=== PATIENT | female | born 1985 | race Caucasian/White ===

== ENCOUNTER 2019-09-01 17:08 | Inpatient (IN) ==
[2019-09-01] MEDS ORDERED: SODIUM CHLORIDE 0.9% 1000ML 1,000 ML IV SCH ×2 (17:30→21:32)
--- NOTE | 2019-09-01 17:58 | CT Scan Report ---
CT head/brain wo con CLINICAL HISTORY: 34 years-old Female presenting with seizure non-verbal. TECHNIQUE: Multidetector CT imaging of the head was performed without the use of intravenous contrast . IV contrast: None. One or more dose lowering techniques were used consistent with the principles of ALARA (as low as reasonably achievable), including automatic exposure control, mA or kV adjustment t o individual patient size, and/or use of iterative reconstruction. COMPARISON: None. CT DOSE (mGy.cm): The estimated cumulative dose is 537.48 mGy.cm. FINDINGS: National Account Manager topogram: Unremarkable. Ventricles and sulci normal in size. No hemorrhage. Brain parenchyma normal in appearance with preser darling staton-white differentiation. No acute territorial infarct. No mass effect or midline shift. No ext ra-axial fluid collection. Paranasal sinuses and mastoid air cells clear. Calvarium intact. IMPRESSION: 1. No acute intracranial abnormality. Electronically signed by: Cabrera Parks M.D. 09/01/2019 5:57 PM
[2019-09-01 18:58] LABS: Basophils # (auto) 0.03 K/uL (0-0.2); Basophils % (auto) 0.3 %; Eosinophils # (auto) 0.07 K/uL (0-0.5); Eosinophils % (auto) 0.7 %; Hematocrit (blood only) 36.6 % (37-47); Hemoglobin 12.8 g/dL (12.0-16.0); Immature Granulocytes # (auto) 0.03 K/uL (0.00-0.02); Immature Granulocytes % (auto) 0.3 %; Lymphocytes % (auto) 41.2 %; Mean Corpuscular Hemoglobin 30.9 pg (25-34); Mean Corpuscular Volume 88.4 fL (80-100); Mean Platelet Volume 9.8 fL (7.4-10.4); Monocytes # (auto) 0.99 K/uL (0.11-0.59); Monocytes % (auto) 9.7 %; Neutrophils # (auto) 4.88 K/uL (1.4-6.5); Neutrophils % (auto) 47.8 %; Platelet Count 169 K/uL (130-400); RDW Coefficient of Variation 13.9 % (11.5-14.5); RDW Standard Deviation 45.3 fL (36.4-46.3); Red Blood Count 4.14 M/uL (4.2-5.4)
[2019-09-01 19:01] LABS: Albumin Level 3.9 gm/dl (3.4-5.0); BUN Creatinine Ratio 25.1 (10-20); Calcium 9.3 mg/dl (8.5-10.1); Creatinine Clr Calc Pharmacy 89.4 ml/min; Est GFR (African American) 112.4; Magnesium 2.3 mg/dl (1.8-2.4); Potassium 3.8 mmol/L (3.5-5.1)
[2019-09-01 19:04] LABS: Albumin Globulin Ratio 1.3 (0.9-2); Bilirubin,Total 0.3 mg/dl (0.2-1); Globulin 2.9 gm/dl (2.5-4.0); Total Protein 6.8 gm/dl (6.4-8.2)
[2019-09-01 19:52] LABS: Appearance Urine Clear (Clear); Bilirubin Urine Negative (Negative); Blood Urine Negative (Negative); Color Urine Yellow; Glucose Urine UA Negative (Negative); Ketones Urine Negative (Negative); Leukocyte Esterase Urine Negative (Negative); Nitrite Urine Negative (Negative); Protein Urine Negative (Negative); Specific Gravity Urine 1.015 (1.000-1.030); Urobilinogen Urine Negative (Negative)
[2019-09-01 20:06] LABS: Bacteria Urine Automated 1+ (Negative); Epithelial Cell Urine Auto >30 /lpf (0-5)
[2019-09-01 20:07] LABS: RBC Urine Automated 0-4 /hpf (0-4)
[2019-09-01 20:34] LABS: Amphetamines+Metham, Urine Neg (Neg); Barbiturates, Urine Neg (Neg); Benzodiazepine, Urine Neg (Neg); Cocaine, Urine Neg (Neg); MDMA (Ecstacy), Urine Neg (Neg); Methadone, Urine Neg (Neg); Opiate, Urine Neg (Neg); Phencyclidine, Urine Neg (Neg)
[2019-09-01] MEDS ORDERED: LORazepam 1.5 MG/3 ML VIAL IV PRN (21:32)
[2019-09-01] MEDS ORDERED: NITROGLYCERIN SL 0.4 MG/TAB TAB SL PRN (21:32)
[2019-09-01] MEDS ORDERED: ONDANSETRON INJ 2 MG/ML 2 ML VIAL IV PRN (21:32)
[2019-09-01] MEDS ORDERED: OXYCODONE/ACETAMINOPHEN 5mg/325mg TAB PO PRN (21:32)
[2019-09-01] MEDS ORDERED: ACETAMINOPHEN 325 MG TAB PO PRN (21:32)
--- NOTE | 2019-09-01 21:58 | History and Physical Report ---
DATE OF ADMISSION: 09/01/2019 CHIEF COMPLAINT: Seizures. HISTORY OF PRESENT ILLNESS: This is a 34-year-old female with past medical history significant for GERD, constipation, history of posttraumatic stress disorder, anxiety, depression, mild intellectual disability, conversion disorder, history of pseudoseizures. The patient says she also has heart murmur. The patient says she has some GI bleeds in the past and she had a colonoscopy recently in February and she says once in while, she still gets some blood in the stools. She is currently at [facility] for suicidal behavior, was transferred here because of seizure episode. The patient had an episode of seizure yesterday and today she had about 18-20 minutes of seizure activity. She was given IM Ativan 4 mg and transferred here. There is question of some confusion postictal, but right now she is alert and awake. No biting of tongue, no incontinence. Hemodynamically stable. The patient had video EEG x2 at [facility], diagnosis was psychogenic nonepileptic spells. Last time, her Keppra was stopped and gabapentin was continued for mood, but she is no longer on gabapentin at this time. In January, she had a colonoscopy, after that she had an episode of seizure activity at that time. Currently resting comfortably, hemodynamically stable. Denies any headache, no blurred visions, no earache, no runny nose, no sore throat. Appetite is okay. No chest pain or shortness of breath. No cough, no fever, no chills. Sleeps okay. Ambulating fine. No nausea, no abdominal pain. She says she still has once in a while blood in the stools, no diarrhea, no burning micturition, Normal bladder movements. No swelling in the legs, no rash. ALLERGIES: No known drug allergies. PAST MEDICAL HISTORY: As mentioned above. PAST SURGICAL HISTORY: Bilateral oophorectomy, reduction of breast, total hysterectomy. MEDICATIONS: The patient is currently on Celebrex 100 mg p.o. b.i.d., Klonopin 1 mg p.o. at bedtime, Depakote 25 mg b.i.d., Colace 100 mg p.o. b.i.d., Lamictal 50 mg p.o. daily, loratadine 10 mg p.o. daily, mirtazapine 50 mg p.o. daily, omeprazole 40 mg p.o. daily, Percocet 1 tablet t.i.d. p.r.n., Protonix 40 mg p.o. daily, Seroquel 50 mg p.o. at bedtime. FAMILY HISTORY: Significant for mother, high cholesterol, TIAs and tremor. Father has alcoholism. Sister has a hole in her heart. Maternal grandmother has colon cancer. Paternal cousin has breast cancer. SOCIAL HISTORY: She says she lives with her boyfriend. Former smoker. She is currently using nicotine patches, last time smoke was in February 2019. She smoked about 7 cigarettes a day for 7 years. Alcohol only on special occasions. No drugs. REVIEW OF SYMPTOMS: As per HPI. Rest of review of systems is negative. PHYSICAL EXAMINATION: GENERAL: The patient is of moderate build, not in acute distress. VITAL SIGNS: Temperature 36.4, pulse 93, respiratory rate 27, blood pressure 107/81, oxygen 98% room air. HEENT: No pallor, no icterus. Pupils equal, round, reactive to light. NECK: No JVD, no neck masses, no carotid bruits. CARDIOVASCULAR: S1, S2 heard, regular rate and rhythm. No murmurs. RESPIRATORY SYSTEM: Normal AP diameter. No accessory muscle use. No wheezing, no crackles. ABDOMEN: Soft, bowel sounds present, nontender. No distention. CENTRAL NERVOUS SYSTEM: Cranial nerves II-XII grossly intact. Nonfocal. EXTREMITIES: No edema, no erythema. LABORATORY DATA: WBC 10.2, hemoglobin 12.8, hematocrit 36.6, platelets 169. Sodium 138, potassium 3.8, chloride 103, bicarbonate 29, BUN 20, creatinine 0.7, serum glucose 83, calcium 9.3, magnesium 2.3, total bilirubin 0.3, AST 17, ALT 29, alkaline phosphatase 53. Urinalysis negative. Urine drug screen negative. IMAGING: CT of the head, no acute intracranial abnormalities seen. EKG: Normal sinus rhythm, rate of 88, no significant change seen. ASSESSMENT AND PLAN: This is a 34-year-old female who presents with seizures. 1. Seizures, history of pseudoseizures, had video EEG 2 times in [place] and it showed psychogenic nonepileptic spells. Currently on Depakote and Lamictal for mood. She was on Keppra, but that was stopped. She had seizure episodes yesterday and today she has about 18 months of seizures, questionable postictal state. Currently, the patient is stable. In the ER, she was given 1 dose of IV Keppra 1 gram. Discussed with neurology. No more other medication, try to avoid any medications for now. We will monitor in tele floor. We will get EEG in the morning. Consult neurology for further recommendations. 2. History of suicidal ideation. We will place observation one on one. Suicide precautions. Consult psychiatry. She is coming from [facility]. 3. History of depression and anxiety, posttraumatic stress disorder. Continue Depakote, Lamictal and Remeron, also Seroquel. 4. Gastroesophageal reflux disease. Continue PPI. 5. Mild intellectual disability. The patient says she lives with a boyfriend, but as per the records, she refused to give the contact phone number. Social Service to help with discharge planning. 6.Heart murmur. Could not appreciate on exam. If any concerns will get echo. 6. Deep venous thrombosis prophylaxis, sequential compression devices for now. 7. Disposition: Closely monitor in the tele floor. Level 1 full code. MTDD
[2019-09-01] MEDS: DOCUSATE SODIUM 100 MG CAP PO SCH (22:39)
[2019-09-01] MEDS: DIVALPROEX DELAY RELEASE 500 MG TAB PO SCH (22:40)
[2019-09-01] MEDS: QUETIAPINE FUMARATE 25 MG TABLET PO SCH (22:40)
[2019-09-01] MEDS: DIVALPROEX DELAY RELEASE 125 MG TABEC PO SCH (22:40)
[2019-09-01] MEDS: clonazePAM 1 MG TAB PO SCH (22:42)
--- NOTE | 2019-09-01 23:39 | Emergency Department Note ---
Entered by Roz Byrnes acting as a scribe for Raúl Nelson DO History of Present Illness General Chief complaint: Seizure Stated complaint: SEIZURE Source: patient and other (care home staff) History of Present Illness Onset (ago): day(s) 1 Location: head (2 seizures ) Associated symptoms: + denies other symptoms (new weakness/numbness in arms and legs, new changes in vision ); no headaches The patient is a 34 year old female with PMhx pertinent for seizures and fake seizures who presents to the Emergency Room for evaluation of a seizure. The patient is a resident at [facility] and was sent her today after having 1 seizure yesterday and 1 today. During evaluation the patient does not verbally answer questions but shakes her head to answer questions. She states she is unsure if she had a seizure yesterday or today and unsure if she bit her tongue. Additionally she does not answer when asked what medicines she takes for seizu res. When asked where she is at she is unsure and when asked if she is home she shakes her head "yes". She is also unsure if she bit her tongue during the seizures. She shakes her head "no" when asked if she has a headache. She also denies new weakness/numbness in her arms or legs as well as new changes in vision. HPI is limited due to patient's physical condition as she was non-verbal. Home Medications Home Medications Medication Instructions Recorded Confirmed Type celecoxib [Celebrex] 100 mg PO BID 09/01/19 09/01/19 History clonazepam [Klonopin] 1 mg PO HS 09/01/19 09/01/19 History divalproex [Depakote] 625 mg PO BID 09/01/19 09/01/19 History docusate sodium [Colace] 100 mg PO BID 09/01/19 09/01/19 History lamotrigine [Lamictal] 50 mg PO DAILY 09/01/19 09/01/19 History loratadine [Claritin] 10 mg PO DAILY 09/01/19 09/01/19 History mirtazapine [Remeron] 15 mg PO DAILY 09/01/19 09/01/19 History omeprazole 40 mg PO DAILY 09/01/19 09/01/19 History oxycodone-acetaminophen [Percocet] 1 tab PO TID PRN 09/01/19 09/01/19 History pantoprazole [Protonix] 40 mg PO DAILY 09/01/19 09/01/19 History quetiapine [Seroquel] 50 mg PO HS 09/01/19 09/01/19 History Allergies Allergy/AdvReac Type Severity Reaction Status Date / Time ketorolac [From Toradol] Allergy Unknown Verified 09/01/19 21:46 tramadol Allergy Unknown Verified 09/01/19 21:46 Past Med/Surg History Social History Preferred Language: Bur[place]ian Communication Ability: Effective Hospice Nurse Required: No Beliefs That Will Affect Care: None Current Living Situation: Other Current Living Situation Comment: [facility] Other Information That Helps Us Care for You: No Feels Safe at Home: Yes Safety Concerns: Feels Safe At This Time Smoking Status: Former smoker Tobacco Type: cigarettes ; Do You Dip or Chew Tobacco: No ; Smoking End Date: January 2019 ; Second Hand Exposure: No ; Tobacco Cessation Education Requested by Patient: No Hx Alcohol Use: Yes Alcohol type: beer, wine and hard liquor Hx Substance Use: No Review of Systems See HPI for pertinent positives & negatives. ROS is limited due to patient's physical condition Physical Exam Vital Signs Vital Signs - 24 hr 09/01/19 17:12 09/01/19 17:15 09/01/19 17:20 Temperature 36.4 C L Temperature Source Oral Pulse Rate 93 H 92 H 93 H Pulse Rate from SpO2 Sensor 92 H 93 H Pulse Rhythm Regular Pulse Strength Normal Respiratory Rate 14 21 14 Respiratory Effort / Characteristics Non-Labored Spontaneous Respiratory Depth Normal Respiratory Pattern Regular Blood Pressure 109/76 109/76 Blood Pressure Mean 103 87 Blood Pressure Position Lying Pulse Oximetry 97 97 97 Oxygen Delivery Method Room Air Room Air Room Air Sepsis Recent Fever Within 48 Hours No Sepsis New/Unexplained Change in Mental Status No Sepsis Action Taken by Nursing No Action Required 09/01/19 17:30 09/01/19 18:00 09/01/19 18:30 Temperature Temperature Source Pulse Rate 101 H 92 H 87 Pulse Rate from SpO2 Sensor 101 H 93 H 88 Pulse Rhythm Pulse Strength Respiratory Rate 16 15 15 Respiratory Effort / Characteristics Respiratory Depth Respiratory Pattern Blood Pressure Blood Pressure Mean Blood Pressure Position Pulse Oximetry 98 98 94 Oxygen Delivery Method Room Air Room Air Room Air Sepsis Recent Fever Within 48 Hours Sepsis New/Unexplained Change in Mental Status Sepsis Action Taken by Nursing 09/01/19 19:00 09/01/19 19:30 09/01/19 19:59 Temperature Temperature Source Pulse Rate 100 H 93 H 93 H Pulse Rate from SpO2 Sensor 94 H Pulse Rhythm Pulse Strength Respiratory Rate 13 18 18 Respiratory Effort / Characteristics Respiratory Depth Respiratory Pattern Blood Pressure 107/81 107/81 Blood Pressure Mean 89 91 Blood Pressure Position Pulse Oximetry 98 98 Oxygen Delivery Method Room Air Room Air Sepsis Recent Fever Within 48 Hours Sepsis New/Unexplained Change in Mental Status Sepsis Action Taken by Nursing 09/01/19 20:00 09/01/19 20:01 Temperature Temperature Source Pulse Rate 101 H 97 H Pulse Rate from SpO2 Sensor Pulse Rhythm Pulse Strength Respiratory Rate 18 16 Respiratory Effort / Characteristics Respiratory Depth Respiratory Pattern Blood Pressure 110/82 Blood Pressure Mean 93 Blood Pressure Position Pulse Oximetry 96 95 Oxygen Delivery Method Room Air Room Air Sepsis Recent Fever Within 48 Hours Sepsis New/Unexplained Change in Mental Status Sepsis Action Taken by Nursing GENERAL: laying in bed, disheveled, non-verbal, following commands EYE EXAM: normal conjunctiva, PERRL and EOM's grossly intact OROPHARYNX: no exudate, no erythema, lips, buccal mucosa, and tongue normal and mucous membranes are moist NECK: supple, no nuchal rigidity, no adenopathy, non-tender LUNGS: Clear to auscultation. Normal chest wall mechanics HEART: tachycardic, S1 normal and S2 normal ABDOMEN: abdomen soft, non-tender, normo-active bowel sounds, no masses, no rebound or guarding. BACK: Back is symmetrical on inspection and there is no deformity, no midline tenderness, no CVA tenderness. SKIN: no rashes and no bruising UPPER EXTREMITIES: upper extremities are grossly normal. LOWER EXTREMITIES: No pitting edema. NEURO EXAM: Non-verbal, following commands, cranial nerves II-XII intact, normal speech, no weakness of arms, no weakness of legs. No drift. Finger to nose intact. Gross sensation intact. Course Course ED COURSE: Vital signs were reviewed and showed tachycardia and hypotension. The patients medical record was reviewed The above diagnostic studies were performed and reviewed. ED treatments and interventions as stated above. 1724: The patient was evaluated in room A09B. A complete history and physical examination was performed. 1834: Upon reevaluation, the patient is awake and talking. 1935: The patient states she is feeling better and wants to eat something. She will be admitted to [facility]. 2199: Upon reevaluation, the patient is resting.I discussed my findings with the patient and she understands and agrees with the treatment plan. Based on the patients age, coexisting illnesses, exam and lab findings the decision to treat as an inpatient was made. The patient remained stable while under my care. The patient will be evaluated for further management by hospitalist. Administered Medications Clonazepam (Klonopin) 1 mg PO HS CLAUDIA Stop: 10/01/19 21:31 Last Admin: 09/01/19 22:42 Dose: 1 mg Documented by: [id number] Divalproex Sodium (Depakote Delay Release) 125 mg PO BID CLAUDIA Stop: 10/01/19 21:59 Last Admin: 09/01/19 22:40 Dose: 125 mg Documented by: [id number] Divalproex Sodium (Depakote Delay Release) 500 mg PO BID CLAUDIA Stop: 10/01/19 21:59 Last Admin: 09/01/19 22:40 Dose: 500 mg Documented by: [id number] Docusate Sodium (Colace) 100 mg PO BID CLAUDIA Stop: 10/01/19 21:31 Last Admin: 09/01/19 22:39 Dose: Not Given Documented by: [id number] Sodium Chloride (Nss 1000ml) 1,000 mls @ 100 mls/hr IV .Q10H CLAUDIA Stop: 10/01/19 21:31 Last Admin: 09/01/19 22:10 Dose: 100 mls/hr Documented by: [id number] Quetiapine Fumarate (Seroquel) 50 mg PO HS CLAUDIA Stop: 10/01/19 21:31 Last Admin: 09/01/19 22:40 Dose: 50 mg Documented by: [id number] Discontinued Medications Sodium Chloride (Nss 1000ml) 1,000 mls @ 999 mls/hr IV .Q1H1M CLAUDIA Stop: 09/01/19 18:30 Last Infusion: 09/01/19 19:01 Dose: 0 mls/hr Documented by: [id number] Admin: 09/01/19 18:00 Dose: 999 mls/hr Documented by: [id number] Levetiracetam 1,000 mg/ (Dextrose) 110 mls @ 440 mls/hr IV NOW STA Stop: 09/01/19 19:49 Last Infusion: 09/01/19 20:45 Dose: 0 mls/hr Documented by: [id number] Admin: 09/01/19 20:30 Dose: 440 mls/hr Documented by: [id number] Impression & Plan Seizure, Altered mental status, Elevated BUN Discharge Plan Visit Data *Final* Discharge Date/Time: 09/01/19 21:06 Chief Complaint: Seizure Stated Complaint: SEIZURE ED Provider: Raúl Nelson Discharge Problem: Seizure, Altered mental status, Elevated BUN Patient Disposition: Admitted As Inpatient Discharge Instructions Interventions: ED Discharge Assessment Last Done: 09/01/19 21:06 Medical Decision Making Differential Diagnosis Differential diagnosis includes but is not limited to etiologies such as infection, hypoglycemia, electrolyte abnormalities, cardiac sources, intracerebral event, trauma, toxicologic, neurologic, as well as others were entertained. Medical Records Attestation: I reviewed the patient's medical records. Home Medications Current Medication List: was personally reviewed by me Laboratory Data Attestation: I reviewed the patient's lab results. Result diagrams: 09/01/19 18:50 09/01/19 18:26 Lab Results 09/01/19 09/01/19 09/01/19 Range/Units 18:26 18:26 18:26 WBC Cancelled RBC Cancelled Hgb Cancelled Hct Cancelled MCV Cancelled MCH Cancelled MCHC Cancelled RDW Std Deviation Cancelled RDW Coeff of Jett Cancelled Plt Count Cancelled MPV Cancelled Immature Gran % (Auto) Cancelled Neut % (Auto) Cancelled Lymph % (Auto) Cancelled Ralls % (Auto) Cancelled Eos % (Auto) Cancelled Baso % (Auto) Cancelled Immature Gran # (Auto) Cancelled Neut # (Auto) Cancelled Lymph # (Auto) Cancelled Ralls # (Auto) Cancelled Eos # (Auto) Cancelled Baso # (Auto) Cancelled Absolute Nucleated RBC Cancelled Nucleated RBC % (auto) Cancelled Neutrophils % (Manual) Cancelled Band Neutrophils % Cancelled Lymphocytes % (Manual) Cancelled Prolymphocyte % Cancelled Reactive Lymphs % (Man) Cancelled Monocytes % (Manual) Cancelled Eosinophils % (Manual) Cancelled Basophils % (Manual) Cancelled Metamyelocytes % (Man) Cancelled Myelocytes % (Man) Cancelled Promyelocytes % (Man) Cancelled Blast Cells % (Manual) Cancelled Plasma Cell % (Manual) Cancelled Other Cells % Cancelled Nucleated RBC % Cancelled Neutrophils # (Manual) Cancelled Band Neutrophils # Cancelled Total Absolute Neuts Cancelled Lymphocytes # (Manual) Cancelled Prolymphocyte # Cancelled Reactive Lymphs # Cancelled Total Abs Lymphocytes Cancelled Monocytes # (Manual) Cancelled Eosinophils # (Manual) Cancelled Basophils # (Manual) Cancelled Metamyelocytes # (Man) Cancelled Myelocytes # (Manual) Cancelled Promyelocytes # (Man) Cancelled Blast Cells # (Man) Cancelled Plasma Cell # (Manual) Cancelled Other Cells # Cancelled Nucleated RBCs # (Man) Cancelled Hypersegmented Neuts Cancelled Hyposegmented Neuts Cancelled Hypogranular Neuts Cancelled Large Granular Lymphs Cancelled # Lrg Granular Lymphs Cancelled Hairy Cells Cancelled Smudge Cells Cancelled Toxic Granulation Cancelled Toxic Vacuolation Cancelled Dohle Bodies Cancelled Jacob Rods Cancelled Platelet Estimate Cancelled Hypogranular Platelets Cancelled Clumped Platelets Cancelled Giant Platelets Cancelled Platelet Satelliting Cancelled RBC Morphology Cancelled Polychromasia Cancelled Hypochromasia Cancelled Poikilocytosis Cancelled Basophilic Stippling Cancelled Anisocytosis Cancelled Microcytosis Cancelled Macrocytosis Cancelled Spherocytes Cancelled Pappenheimer Bodies Cancelled Sickle Cells Cancelled Target Cells Cancelled Tear Drop Cells Cancelled Ovalocytes Cancelled Stomatocytes Cancelled [place] Bodies Cancelled Echinocytes Cancelled Acanthocytes (Spur) Cancelled Rouleaux Cancelled RBC Agglutinates Cancelled Schistocytes Cancelled RBC Morph Comment Cancelled Sezary Cell Cancelled Sodium 138 (136-145) mmol/L Potassium 3.8 (3.5-5.1) mmol/L Chloride 103 (98-107) mmol/L Carbon Dioxide 29 (21-32) mmol/L Anion Gap 6.0 (3-11) BUN 20 H (7-18) mg/dl Creatinine 0.79 (0.6-1.2) mg/dl Est Cr Clr Drug Dosing 89.4 ml/min Est GFR ( Amer) 112.4 Est GFR (Non-Af Amer) 97.0 BUN/Creatinine Ratio 25.1 H (10-20) Glucose 83 (70-99) mg/dl Calcium 9.3 (8.5-10.1) mg/dl Magnesium 2.3 (1.8-2.4) mg/dl Total Bilirubin 0.3 (0.2-1) mg/dl AST 17 (15-37) U/L ALT 19 (12-78) U/L Alkaline Phosphatase 53 (45-117) U/L Total Protein 6.8 (6.4-8.2) gm/dl Albumin 3.9 (3.4-5.0) gm/dl Globulin 2.9 (2.5-4.0) gm/dl Albumin/Globulin Ratio 1.3 (0.9-2) Urine Color Urine Appearance (Clear) Urine pH (4.5-7.5) Ur Specific Girard (1.000-1.030) Urine Protein (Negative) Urine Glucose (UA) (Negative) Urine Ketones (Negative) Urine Blood (Negative) Urine Nitrite (Negative) Urine Bilirubin (Negative) Urine Urobilinogen (Negative) Ur Leukocyte Esterase (Negative) Urine WBC (Auto) (0-5) /hpf Urine RBC (Auto) (0-4) /hpf U Epithel Cells (Auto) (0-5) /lpf Urine Bacteria (Auto) (Negative) Urine Opiates Screen (Neg) Ur Methadone, Qual (Neg) Urine Barbiturates (Neg) Valproic Acid 79 (50-100) mcg/ml Ur Phencyclidine (PCP) (Neg) U Amphetamin/Meth Scrn (Neg) MDMA (Ecstasy) Screen (Neg) U Benzodiazepines Scrn (Neg) Ur Cocaine Metabolite (Neg) U Marijuana (THC) Screen (Neg) 09/01/19 09/01/19 09/01/19 Range/Units 18:50 19:39 19:39 WBC 10.20 RBC 4.14 L Hgb 12.8 Hct 36.6 L MCV 88.4 MCH 30.9 MCHC 35.0 RDW Std Deviation 45.3 RDW Coeff of Jett 13.9 Plt Count 169 MPV 9.8 Immature Gran % (Auto) 0.3 Neut % (Auto) 47.8 Lymph % (Auto) 41.2 Ralls % (Auto) 9.7 Eos % (Auto) 0.7 Baso % (Auto) 0.3 Immature Gran # (Auto) 0.03 H Neut # (Auto) 4.88 Lymph # (Auto) 4.20 H Ralls # (Auto) 0.99 H Eos # (Auto) 0.07 Baso # (Auto) 0.03 Absolute Nucleated RBC Nucleated RBC % (auto) Neutrophils % (Manual) Band Neutrophils % Lymphocytes % (Manual) Prolymphocyte % Reactive Lymphs % (Man) Monocytes % (Manual) Eosinophils % (Manual) Basophils % (Manual) Metamyelocytes % (Man) Myelocytes % (Man) Promyelocytes % (Man) Blast Cells % (Manual) Plasma Cell % (Manual) Other Cells % Nucleated RBC % Neutrophils # (Manual) Band Neutrophils # Total Absolute Neuts Lymphocytes # (Manual) Prolymphocyte # Reactive Lymphs # Total Abs Lymphocytes Monocytes # (Manual) Eosinophils # (Manual) Basophils # (Manual) Metamyelocytes # (Man) Myelocytes # (Manual) Promyelocytes # (Man) Blast Cells # (Man) Plasma Cell # (Manual) Other Cells # Nucleated RBCs # (Man) Hypersegmented Neuts Hyposegmented Neuts Hypogranular Neuts Large Granular Lymphs # Lrg Granular Lymphs Hairy Cells Smudge Cells Toxic Granulation Toxic Vacuolation Dohle Bodies Jacob Rods Platelet Estimate Hypogranular Platelets Clumped Platelets Giant Platelets Platelet Satelliting RBC Morphology Polychromasia Hypochromasia Poikilocytosis Basophilic Stippling Anisocytosis Microcytosis Macrocytosis Spherocytes Pappenheimer Bodies Sickle Cells Target Cells Tear Drop Cells Ovalocytes Stomatocytes Silva[place] Bodies Echinocytes Acanthocytes (Spur) Rouleaux RBC Agglutinates Schistocytes RBC Morph Comment Sezary Cell Sodium (136-145) mmol/L Potassium (3.5-5.1) mmol/L Chloride (98-107) mmol/L Carbon Dioxide (21-32) mmol/L Anion Gap (3-11) BUN (7-18) mg/dl Creatinine (0.6-1.2) mg/dl Est Cr Clr Drug Dosing ml/min Est GFR ( Amer) Est GFR (Non-Af Amer) BUN/Creatinine Ratio (10-20) Glucose (70-99) mg/dl Calcium (8.5-10.1) mg/dl Magnesium (1.8-2.4) mg/dl Total Bilirubin (0.2-1) mg/dl AST (15-37) U/L ALT (12-78) U/L Alkaline Phosphatase (45-117) U/L Total Protein (6.4-8.2) gm/dl Albumin (3.4-5.0) gm/dl Globulin (2.5-4.0) gm/dl Albumin/Globulin Ratio (0.9-2) Urine Color Yellow Urine Appearance Clear (Clear) Urine pH 7.0 (4.5-7.5) Ur Specific Girard 1.015 (1.000-1.030) Urine Protein Negative (Negative) Urine Glucose (UA) Negative (Negative) Urine Ketones Negative (Negative) Urine Blood Negative (Negative) Urine Nitrite Negative (Negative) Urine Bilirubin Negative (Negative) Urine Urobilinogen Negative (Negative) Ur Leukocyte Esterase Negative (Negative) Urine WBC (Auto) 5-10 H (0-5) /hpf Urine RBC (Auto) 0-4 (0-4) /hpf U Epithel Cells (Auto) >30 H (0-5) /lpf Urine Bacteria (Auto) 1+ H (Negative) Urine Opiates Screen Neg (Neg) Ur Methadone, Qual Neg (Neg) Urine Barbiturates Neg (Neg) Valproic Acid (50-100) mcg/ml Ur Phencyclidine (PCP) Neg (Neg) U Amphetamin/Meth Scrn Neg (Neg) MDMA (Ecstasy) Screen Neg (Neg) U Benzodiazepines Scrn Neg (Neg) Ur Cocaine Metabolite Neg (Neg) U Marijuana (THC) Screen Neg (Neg) Imaging Data Radiologist's Impression: Radiology results as stated below per my review and the radiologist's interpretation: CT head/brain wo con CLINICAL HISTORY: 34 years-old Female presenting with seizure non-verbal. TECHNIQUE: Multidetector CT imaging of the head was performed without the use of intravenous contrast. IV contrast: None. One or more dose lowering techniques were used consistent with the principles of ALARA (as low as reasonably achievable), including automatic exposure control, mA or kV adjustment to individual patient size, and/or use of iterative reconstruction. COMPARISON: None. CT DOSE (mGy.cm): The estimated cumulative dose is 537.48 mGy.cm. FINDINGS: Environmental Aid topogram: Unremarkable. Ventricles and sulci normal in size. No hemorrhage. Brain parenchyma normal in appearance with preserved staton-white differentiation. No acute territorial infarct. No mass effect or midline shift. No extra-axial fluid collection. Paranasal sinuses and mastoid air cells clear. Calvarium intact. IMPRESSION: 1. No acute intracranial abnormality. Electronically signed by: Cabrera Parks M.D. 09/01/2019 5:57 PM ECG Data Attestation: I personally reviewed and interpreted this ECG as follows: Indication: + other (seizure) Rate (beats per minute): 88 Rhythm: + sinus rhythm ECG Intervals/blocks: + Normal QT ECG [place]: + Normal ECG Findings: no PVCs Blood Pressure Blood Pressure Findings: Low blood pressure Blood Pressure Disposition: Referred to patients primary care provider [facility] Narrative Patient is a 34-year-old female who presents the ER for possible seizure. Patient was brought in by EMS from the [facility] as the patient had a 20-minute seizure. She is a past medical history of pseudoseizures and seizures per her record. She had a seizure yesterday/last night and again the one prior to arrival. She was given 4 IM of Ativan prior to arrival. Upon arrival she was nonverbal and able to shake her head yes and no. She denied all complaints initially. When she eventually woke up she did not remember what happened and again declined any headache, change in vision, chest pains, shortness of breath, nausea vomiting or diarrhea. IV was established blood work was obtained here and showed no significant leukocytosis or anemia. BMP along with LFTs bilirubin was unremarkable. UA was contaminated with multiple epithelial cells. Tox was negative. Depakote level was 70. CT head was negative. Patient was given IV fluids. She was given IV Keppra as well. She was updated bedside. She was admitted to the hospital for further work-up as she has had 2 seizures and under 24 hours 1 of which lasted for 20 minutes. She was also placed on a one-to-one as she was admitted to the medicine initially for suicidal ideations. Discharge Problem: Altered mental status Qualifiers: Altered mental status type: unspecified Qualified Code(s): R41.82 - Altered mental status, unspecified The scribe's documentation has been prepared under my direction and personally reviewed by me in its entirety. I confirm that the note above accurately reflects all work, treatment, procedures, and medical decision making performed by me.
[2019-09-02 05:44] LABS: Basophils # (auto) 0.02 K/uL (0-0.2); Basophils % (auto) 0.3 %; Eosinophils # (auto) 0.16 K/uL (0-0.5); Eosinophils % (auto) 2.1 %; Hematocrit (blood only) 34.1 % (37-47); Hemoglobin 11.7 g/dL (12.0-16.0); Immature Granulocytes # (auto) 0.02 K/uL (0.00-0.02); Immature Granulocytes % (auto) 0.3 %; Lymphocytes # (auto) 3.59 K/uL (1.2-3.4); Mean Corpuscular Hemoglobin 31.4 pg (25-34); Mean Corpuscular Hgb Conc 34.3 g/dL (32-36); Mean Corpuscular Volume 91.4 fL (80-100); Mean Platelet Volume 9.7 fL (7.4-10.4); Monocytes # (auto) 1.01 K/uL (0.11-0.59); Monocytes % (auto) 12.9 %; Neutrophils % (auto) 38.4 %; Platelet Count 181 K/uL (130-400); RDW Standard Deviation 46.4 fL (36.4-46.3); Red Blood Count 3.73 M/uL (4.2-5.4)
[2019-09-02 06:15] LABS: BUN Creatinine Ratio 24.2 (10-20); Calcium 8.4 mg/dl (8.5-10.1); Creatinine Clr Calc Pharmacy 94.2 ml/min; Est GFR (African American) 119.7; Est GFR (Non-African American) 103.3; Magnesium 2.1 mg/dl (1.8-2.4); Potassium 3.8 mmol/L (3.5-5.1)
[2019-09-02] MEDS ORDERED: PNEUMOCOCCAL POLYSACCHARIDES 25 MCG/0.5 ML VIAL/SYR IM ONE (07:30)
[2019-09-02] MEDS ORDERED: PNEUMOCOCCAL ADMINISTRATION CHARGE ONE (07:30)
[2019-09-02] MEDS ORDERED: MIRTAZAPINE TAB 15 MG TAB PO SCH ×2 (09:00→21:00)
[2019-09-02] MEDS ORDERED: NON-FORMULARY MEDICATION (Omeprazole 40 MG) PO SCH (09:00)
[2019-09-02] MEDS: lamoTRIgine 25 MG TAB PO SCH (09:33)
[2019-09-02] MEDS: PANTOprazole 40 MG TAB PO SCH (09:33)
[2019-09-02] MEDS: DIVALPROEX DELAY RELEASE 125 MG TABEC PO SCH ×2 (09:33→21:39)
[2019-09-02] MEDS: DIVALPROEX DELAY RELEASE 500 MG TAB PO SCH ×2 (09:34→21:39)
[2019-09-02] MEDS: LORATADINE 10 MG TAB PO SCH (09:34)
[2019-09-02] MEDS: DOCUSATE SODIUM 100 MG CAP PO SCH ×2 (09:35→21:39)
[2019-09-02] MEDS: NICOTINE 7 MG/24 HR TDSY TD SCH (09:36)
[2019-09-02] MEDS ORDERED: ACETAMINOPHEN 325 MG TAB PO PRN (10:18)
--- NOTE | 2019-09-02 10:20 | Hospitalist Progress Note ---
Date of Service September 02, 2019 Assessment & Plan (1) Seizure: Seizure versus Pseudoseizure -currently at [facility] for suicidal behavior, was transferred here because of concern for a seizure episode -as per admitting hospitalist the episode of about 18-20 minutes of seizure activity when at the [facility], was given IM Ativan 4 mg and transferred to hospital on 09/01/19 -In the ER, she was given 1 dose of IV Keppra 1 gram. -patient's history of seizure workup is difficult to discern from pseudoseizures in the past; had video EEG 2 times in [place] and showed psychogenic nonepileptic spells. -admitting hospitalist discussed with neurology consult who advised monitoring conservatively rather than increase anti-epileptics for now -monitoring patient on telemetry -EEG -neurology recommendations appreciated History of suicidal ideations History of depression and anxiety, posttraumatic stress disorder -transferred from [facility] -Continue Depakote, Lamictal and Remeron, also Seroquel. -observation one on one -Suicide precautions -inpatient psychiatry consult was requested by admitting physician Mild intellectual disability? -case management consult no cardiac murmur audible on my exam there does not appear to be a role to do additional cardiac imaging testing at this time Gastroesophageal reflux disease -Continue PPI Deep venous thrombosis prophylaxis, sequential compression devices for now Subjective Patient seen and examined at bedside. Patient has 1 to 1. Doctor accompanied by nurse. Patient eating food. No acute distress. Patient on room air. heart rate is regular rate and rhythm. Patient denies chest pain or abdominal pain. no nausea of headache or dizziness reported. Review of Systems Review of Systems: All systems reviewed & are unremarkable except as noted in HPI & below Physical Exam Eyes: PERRL, conjunctivae normal, anicteric sclerae EOM intact bilaterally ENMT: external ear and nose normal, oropharynx normal Neck: normal visual inspection Respiratory: normal respiratory effort Cardiovascular: Rate/Rhythm: regular rate and regular rhythm Gastrointestinal (Abdomen): normal bowel sounds, soft, nontender, no hepatosplenomegaly Musculoskeletal: Head/Neck/Chest: normocephalic and head atraumatic Neurologic: PERRL, EOMI, accommodation nl, no face palsy, no dysarthria CN's II-XI intact bilaterally Psychiatric: Orientation: alert and oriented x 3 Results & Data Vital Signs (Past 12 Hours) Vital Signs Temp Pulse Resp BP BP Pulse Ox 09/02/19 07:55 36.9 C 78 14 86/69 L 98 09/02/19 07:04 36.7 C 88 18 100/50 L 93 09/02/19 05:48 36.5 C 78 20 117/69 98 09/02/19 00:01 90 16 95/65 L 95
[2019-09-02] MEDS ORDERED: SODIUM CHLORIDE 0.9% 250 ML IV ONE (10:30)
--- NOTE | 2019-09-02 11:32 | Psychiatric Consultation ---
Date of Consultation September 02, 2019 Impression / Recommendations Impression 34-year-old female admitted medically on 09/01/2019 after presenting to the ED status post observation of seizure activity. Patient was transferred from the [facility] after she reportedly experienced to seizures at their facility. Patient was admitted to the [facility] after reported "overdose", having admitted to taking #2 tablets of oxycodone in order to "take the edge off." Pt was admitted to this facility from the [facility], where she had receiving treatment voluntarily to address her reports of SI and diagnoses of anxiety, depression, and PTSD. Pt was placed on 1:1 and suicide precautions on medical admission, and these should be maintained during her stay to ensure appropriate observation to reduce potential risk of self-harm. Psychiatric consultation was requested to evaluate the patient for potential suicide risk. Patient is able to contract for safety within the hospital setting; however, should be maintained on suicide protocol while in our facility. As patient is denying any significant symptoms related to depression, anxiety, or significant stressors with defer any further medication adjustments to her psychiatric providers at the [facility]. Of note, patient states that her dose of Depakote was reduced to 500mg BID - this is not able to be confirmed with the updated MAR sent by the [facility] - but should be addressed up return to their facility in order to ensure appropriate understanding of recommended dose. Also will adjust dosing of mirtazapine to reflect the [facility] records. Recommend patient return to the [facility] after medical clearance in order to continue psychiatric treatment and participate in aftercare arrangements. Dr. Sylwia Hardy was directly involved in review and discussion of the patient's case and participated in medical decision making regarding treatment recommendations. Risk Factors Assessment Male: No : Yes Health Problems: Yes Mental Health Diagnoses: Yes Substance Use Disorders: No Family History of Suicide: No Hopelessness: No Protective Factors Assessment : No Stable Relationships: No Supportive Family: No Psych History Identifying Data 34-year-old female admitted medically on 09/01/19 after presenting to the ED with observed seizure activity. Pt is presently a patient at the [facility], where she was admitted s/p "overdose" of #2 tablets of oxycodone. She was transferred to the ED and admitted medically for monitoring and treatment of seizure disorder. Psychiatric consultation was requested to evaluate patient for suicidal ideation. Information is limited, as patient is not a strong historian - information is only available from hospital documentation. Chief Complaint "I took two oxycodone." History of Present Illness Divina Inman is a 34-year-old female admitted medically on 09/01/19 after presenting to the ED with observed seizure activity. Patient is currently engaged in psychiatric treatment at the [facility] after a reported suicide attempt by overdose. Patient has a past medical history of GERD, mild intellectual disability, conversion disorder, history of pseudoseizures/seizure disorder, anxiety, depression, and PTSD. Psychiatric consultation is requested to evaluate the patient due to concerns for suicidal ideation. Patient states that she was admitted to the [facility] on "Sunday" (08/29/19) after she "took 2 oxycodone." When asked why patient had engaged in this behavior, she states "my mom, dad, and stepdad do not get along." Patient states that she took the medication in an attempt to "take the edge off." She denies to this provider suicidal intent at the time of taking the medication, stating she did not believe that it would seriously harm her. Patient states that her boyfriend had been downstairs at the time of her overdose, and after finding out about the patient's behavior had called the frit burner. Patient was admitted voluntarily for inpatient psychiatric treatment, and after displaying seizure activity on 2 separate accounts, was transferred to the ED for further workup and treatment. This time, patient states that her mood is "good." She believes that her condition has been improving since her initial admission to the [facility]. Patient denies any significant concerns related to psychiatric history, and feels that her medications have been beneficial. Patient initially states that there were no changes made to her medications upon admission to the [facility]; however, she later states that she was instructed to take 500 mg of Depakote twice a day. Patient states that she is seen at [facility] on an outpatient basis, having regular visits with both a therapist and a psychiatric prescriber. Patient denies any significant stressors at this time that are not currently being addressed in her treatment at the [facility]. Pt denies SI, HI, SIB, A/V hallucinations, paranoia, azael/hypomania, other symptoms more suggestive of a bipolar presentation, OCD, eating disorder, and other specific psychiatric symptoms. Past Psychiatric History Current Psychiatric Diagnosis: Per hospital documentation: depression, anxiety, PTSD, mild ID Outpatient Services: Reportedly has providers for both therapy and medication management at [facility] Previous Psych Admissions: Was admitted to our facility from the [facility] - admission ~08/28/19 History of Previous Suicide Attempt: Yes (patient's perceived lethality is unknown) Describe Attempts in the Past: Took #4 tylenol in the context of pain s/p wisdom tooth extract. Past Medication Trials: 1. Keppra 2. Klonopin 3. Depakote 4. Lamictal 5. Remeron 6. Seroquel Allergies Allergy/AdvReac Type Severity Reaction Status Date / Time ketorolac [From Toradol] Allergy Unknown Verified 09/01/19 21:46 tramadol Allergy Unknown Verified 09/01/19 21:46 Home Medications Home Medications Medication Instructions Recorded Confirmed Type celecoxib [Celebrex] 100 mg PO BID 09/01/19 09/01/19 History clonazepam [Klonopin] 1 mg PO HS 09/01/19 09/01/19 History divalproex [Depakote] 625 mg PO BID 09/01/19 09/01/19 History docusate sodium [Colace] 100 mg PO BID 09/01/19 09/01/19 History lamotrigine [Lamictal] 50 mg PO DAILY 09/01/19 09/01/19 History loratadine [Claritin] 10 mg PO DAILY 09/01/19 09/01/19 History mirtazapine [Remeron] 15 mg PO DAILY 09/01/19 09/01/19 History omeprazole 40 mg PO DAILY 09/01/19 09/01/19 History oxycodone-acetaminophen [Percocet] 1 tab PO TID PRN 09/01/19 09/01/19 History pantoprazole [Protonix] 40 mg PO DAILY 09/01/19 09/01/19 History quetiapine [Seroquel] 50 mg PO HS 09/01/19 09/01/19 History Family History No known family history of psychiatric conditions. Pt reports biological father struggles with alcohol abuse. Substance Abuse History Pt admits to history of tobacco use, having quit smoking in 02/2019 - continues to utilize nicotine patch at home. Pt reports rare, social consumption of alcohol "only on New Years." Reports consuming 3-4 alcoholic beverages on nights she partakes. Personal History Marital Status: Single Number Of Children: None Psychological Trauma History Comment: History of PTSD, specific trauma is u nclear Patient History Social History Preferred Language: Thai Communication Ability: Effective Locker Room Attendant Required: No Beliefs That Will Affect Care: None Current Living Situation: Other Current Living Situation Comment: [place] Other Information That Helps Us Care for You: No Feels Safe at Home: Yes Safety Concerns: Feels Safe At This Time Smoking Status: Former smoker Tobacco Type: cigarettes ; Do You Dip or Chew Tobacco: No ; Smoking End Date: January 2019 ; Second Hand Exposure: No ; Tobacco Cessation Education Requested by Patient: No Hx Alcohol Use: Yes Alcohol type: beer, wine and hard liquor Hx Substance Use: No Physical Exam Psychiatric: Orientation: alert and oriented x 3 Apperance: appropriately dressed and + disheveled; + did not appear stated age (appearing significantly younger than stated age) female of healthy appearing weight, laying in bed in no acute distress. Pt appears significantly younger than stated age. She is appropriately dressed for setting, wearing paper scrubs. Hair is short, and disheveled. She has multiple ear piercings. Level of hygiene is seemingly adequate, pt not overtly malodorous. Level of hydration appears adequate Eye Contact: + poor eye contact (not making direct eye contact; spending most of interview with eyes closed) Motor Behavior: no abnormal motor movements (observed while laying in bed) Speech: + abnormal rate/rhythm/volume of speech (soft tone, nonspontaneous, brief responses to questions) Affect: + flat affect (appearing fatigued) Mood: no depressed mood ("I'm good, just good") and no anxious mood Thought Process: goal directed thought process, + concrete thought process and thought association intact Thought Content: reality based without delusions; no hopelessness and no worthlessness Suicidal Thoughts: denies suicidal thoughts and denies suicidal intent Homicidal Thoughts: denies homicidal thoughts Hallucinations: no auditory hallucinations and no visual hallucinations Cognition: attention grossly intact and language grossly intact Estimated Intelligence: + below average estimated intelligence Insight: + limited insight Judgement: + fair judgement Vital Signs (Past 24 Hours): Last Vital Signs Temp 36.5 C 09/02/19 10:46 Pulse 94 H 09/02/19 10:46 Resp 18 09/02/19 10:46 BP 99/65 L 09/02/19 10:46 Pulse Ox 94 09/02/19 10:46 Review of Systems Constitutional: reports fatigue, often having alteration of sleep/wake cycle HEENT: reports "juarez ringing" in right ear Cardiovascular: denied Respiratory: denied Gastrointestinal: denied Neurological: denied Psychiatric: denies symptoms other than stated above Total of at least 10 systems reviewed, pertinent positives as above and in HPI. Results & Data Medications Administered Clonazepam (Klonopin) 1 mg PO HS CLAUDIA Stop: 10/01/19 21:31 Last Admin: 09/01/19 22:42 Dose: 1 mg Documented by: [id number] Divalproex Sodium (Depakote Delay Release) 125 mg PO BID CLAUDIA Stop: 10/01/19 21:59 Last Admin: 09/02/19 09:33 Dose: 125 mg Documented by: [id number] Admin: 09/01/19 22:40 Dose: 125 mg Documented by: [id number] Divalproex Sodium (Depakote Delay Release) 500 mg PO BID CLAUDIA Stop: 10/01/19 21:59 Last Admin: 09/02/19 09:34 Dose: 500 mg Documented by: [id number] Admin: 09/01/19 22:40 Dose: 500 mg Documented by: [id number] Docusate Sodium (Colace) 100 mg PO BID CLAUDIA Stop: 10/01/19 21:31 Last Admin: 09/02/19 09:35 Dose: 100 mg Documented by: [id number] Admin: 09/01/19 22:39 Dose: Not Given Documented by: [id number] Lamotrigine (Lamictal) 50 mg PO DAILY CLAUDIA Stop: 10/02/19 08:59 Last Admin: 09/02/19 09:33 Dose: 50 mg Documented by: [id number] Loratadine (Claritin) 10 mg PO DAILY CLAUDIA Stop: 10/02/19 08:59 Last Admin: 09/02/19 09:34 Dose: 10 mg Documented by: [id number] Mirtazapine (Remeron) 15 mg PO DAILY CLAUDIA Stop: 10/02/19 08:59 Last Admin: 09/02/19 09:33 Dose: 15 mg Documented by: [id number] Miscellaneous (Remove Nicoderm Patch) 1 ea N/A DAILY@0859 [facility] Stop: 10/02/19 08:58 Last Admin: 09/02/19 09:36 Dose: 1 ea Documented by: [id number] Nicotine (Nicoderm Cq) 7 mg TD QAM CLAUDIA Stop: 10/02/19 08:59 Last Admin: 09/02/19 09:36 Dose: 7 mg Documented by: [id number] Pantoprazole Sodium (Protonix) 40 mg PO DAILY CLAUDIA Stop: 10/02/19 08:59 Last Admin: 09/02/19 09:33 Dose: 40 mg Documented by: [id number] Quetiapine Fumarate (Seroquel) 50 mg PO HS CLAUDIA Stop: 10/01/19 21:31 Last Admin: 09/01/19 22:40 Dose: 50 mg Documented by: [id number] Coding Level of Care Code 70873 [facility] Intl Hosp Care Lvl 2
--- NOTE | 2019-09-02 14:04 | Electroencephalogram ---
EEG Procedure Note Date of Service September 02, 2019 Start / End Times Start Time: 816 End Time: [address] Samson History History of pseudoseizures now with protracted seizure-like activity of uncertain cause Home Medication List Home Medications Medication Instructions Recorded Confirmed Type celecoxib [Celebrex] 100 mg PO BID 09/01/19 09/01/19 History clonazepam [Klonopin] 1 mg PO HS 09/01/19 09/01/19 History divalproex [Depakote] 625 mg PO BID 09/01/19 09/01/19 History docusate sodium [Colace] 100 mg PO BID 09/01/19 09/01/19 History lamotrigine [Lamictal] 50 mg PO DAILY 09/01/19 09/01/19 History loratadine [Claritin] 10 mg PO DAILY 09/01/19 09/01/19 History omeprazole 40 mg PO DAILY 09/01/19 09/01/19 History oxycodone-acetaminophen [Percocet] 1 tab PO TID PRN 09/01/19 09/01/19 History pantoprazole [Protonix] 40 mg PO DAILY 09/01/19 09/01/19 History quetiapine [Seroquel] 50 mg PO HS 09/01/19 09/01/19 History mirtazapine [Remeron] 7.5 mg PO HS 09/02/19 09/02/19 History Inpatient Medication List Clonazepam (Klonopin) 1 mg PO HS [facility] Stop: 10/01/19 21:31 Last Admin: 09/01/19 22:42 Dose: 1 mg Documented by: [id number] Divalproex Sodium (Depakote Delay Release) 125 mg PO BID [facility] Stop: 10/01/19 21:59 Last Admin: 09/02/19 09:33 Dose: 125 mg Documented by: [id number] Admin: 09/01/19 22:40 Dose: 125 mg Documented by: [id number] Divalproex Sodium (Depakote Delay Release) 500 mg PO BID [facility] Stop: 10/01/19 21:59 Last Admin: 09/02/19 09:34 Dose: 500 mg Documented by: [id number] Admin: 09/01/19 22:40 Dose: 500 mg Documented by: [id number] Docusate Sodium (Colace) 100 mg PO BID [facility] Stop: 10/01/19 21:31 Last Admin: 09/02/19 09:35 Dose: 100 mg Documented by: [id number] Admin: 09/01/19 22:39 Dose: Not Given Documented by: [id number] Lamotrigine (Lamictal) 50 mg PO DAILY [facility] Stop: 10/02/19 08:59 Last Admin: 09/02/19 09:33 Dose: 50 mg Documented by: [id number] Loratadine (Claritin) 10 mg PO DAILY [facility] Stop: 10/02/19 08:59 Last Admin: 09/02/19 09:34 Dose: 10 mg Documented by: [id number] Miscellaneous (Remove Nicoderm Patch) 1 ea N/A DAILY@0859 [facility] Stop: 10/02/19 08:58 Last Admin: 09/02/19 09:36 Dose: 1 ea Documented by: [id number] Nicotine (Nicoderm Cq) 7 mg TD QAM [facility] Stop: 10/02/19 08:59 Last Admin: 09/02/19 09:36 Dose: 7 mg Documented by: [id number] Pantoprazole Sodium (Protonix) 40 mg PO DAILY [facility] Stop: 10/02/19 08:59 Last Admin: 09/02/19 09:33 Dose: 40 mg Documented by: [id number] Quetiapine Fumarate (Seroquel) 50 mg PO HS [facility] Stop: 10/01/19 21:31 Last Admin: 09/01/19 22:40 Dose: 50 mg Documented by: [id number] Discontinued Medications Sodium Chloride (Nss 1000ml) 1,000 mls @ 999 mls/hr IV .Q1H1M [facility]UD[facility] Stop: 09/01/19 18:30 Last Infusion: 09/01/19 19:01 Dose: 0 mls/hr Documented by: [id number] Admin: 09/01/19 18:00 Dose: 999 mls/hr Documented by: [id number] Levetiracetam 1,000 mg/ (Dextrose) 110 mls @ 440 mls/hr IV NOW STA Stop: 09/01/19 19:49 Last Infusion: 09/01/19 20:45 Dose: 0 mls/hr Documented by: [id number] Admin: 09/01/19 20:30 Dose: 440 mls/hr Documented by: [id number] Sodium Chloride (Nss 1000ml) 1,000 mls @ 100 mls/hr IV .Q10H CLAUDIA Stop: 10/01/19 21:31 Last Infusion: 09/02/19 08:21 Dose: 0 mls/hr Documented by: [id number] Admin: 09/01/19 22:10 Dose: 100 mls/hr Documented by: [id number] Sodium Chloride (Nss) 250 mls @ 999 mls/hr IV .Q16M ONE Stop: 09/02/19 10:45 Last Infusion: 09/02/19 11:05 Dose: 0 mls/hr Documented by: [id number] Admin: 09/02/19 10:43 Dose: 999 mls/hr Documented by: [id number] Mirtazapine (Remeron) 15 mg PO DAILY [facility] Stop: 10/02/19 08:59 Last Admin: 09/02/19 09:33 Dose: 15 mg Documented by: [id number] Description This is a 21 electrode EEG with a single channel dedicated to limited EKG. The electrodes were placed in accordance with the International 10-20 system. This EEG was done as a bedside recording and is of excellent technical quality without any significant movement or muscle artifact. Photic stimulation was performed. Drowsiness and light sleep are not obtained. During wakefulness there is evidence for a low amplitude background rhythm in the alpha range which is of up to 10 to 11 Hz and maximum frequency and maximum posterior head regions and bilaterally symmetrical. Polymorphic mid frequency low to moderate voltage theta activity is seen centrally and symmetrically. Beta activity is prominent throughout the recording and is seen both frontally and centrally. Photic stimulation provokes a modest driving response without a photo myogenic a photoparoxysmal component. No time is or evidence for potentially epileptogenic activity Interpretation This is a normal EEG during wakefulness Clinical Correlation This is a normal EEG without evidence for focal generalized encephalopathy and without evidence for epileptogenic activity Bautista Davila MD
--- NOTE | 2019-09-02 15:30 | Neurology Consultation ---
Date of Consultation September 02, 2019 Assessment & Plan (1) Anxiety attack: 1. pseudo seizure- this has been worked up several times at [facility] 2. would not continue keppra as she does not need treatment for this 3. psychiatry - for any medications adjustments 4. EEG- no seizure focus 5. once medically and psychiatrically stable ok from neurology perspective to discharge back to [facility] if needed. will sign off for now will be available as needed. Supervising Physician Co-Signing Physician Notes I have seen and discussed above patient with Dr Bautista Davila, neurology I have evaluated this young woman, reviewed her chart, her imaging studies, her labs and her EEG along with a history of well-documented nonepileptic seizures and apparently his recent suicide gesture requiring admission to the [facility] for assessment She is not on any anticonvulsants for epilepsy control but rather for behavior and this includes Depakote and low-dose Lamictal and apparently she is also seen by Dr Delacruz and a psychiatrist in [place] The event that occurred at the [facility] my opinion is yet another non-epileptic seizure as she really was not postictal and had no bodily harm, had normal white count and a normal EEG and was rapidly back to her baseline status without any postictal state I would not continue Keppra at this point and I discussed this with her admitting physician last night and I do not believe this is has been continued beyond the initial "loading dose" At this point neurology has no further suggestions other than that she be returned to the [facility] if indeed they will accept her in transfer, complete her inpatient stay, and then return to the care of her psychiatrist and neurologist in the [place] area which is her home basis. We are recommending no change in her current "anticonvulsant" regimen which is really on board for behavior modification not for seizure control Bautista Davila MD History of Present Illness Attending Physician: Abebe Gutierrez MD History of Present Illness Divina is a 34 year old female with GERD, constipation, history of posttraumatic stress disorder, anxiety, depression, mild intellectual disability, conversion disorder, pseudoseizures. She was brought to [facility] from the [facility] which she is being watched for suicidal behavior seizure episode which was reported to last 18-20 minutes of seizure activity. She was given ativan at the facility but had no post ictal issues. there was no biting her tongue, no incontinence. She had a video EEG x2 at [facility], diagnosis was psychogenic nonepileptic spells her Keppra and gabapentin was stopped at that time. denies CP, SOB, abdominal pain, one sided weakness, numbness tingling, N, V, incontinence, tongue biting. her CK was normal. Allergies Allergy/AdvReac Type Severity Reaction Status Date / Time ketorolac [From Toradol] Allergy Unknown Verified 09/01/19 21:46 tramadol Allergy Unknown Verified 09/01/19 21:46 Home Medications Home Medications Medication Instructions Recorded Confirmed Type celecoxib [Celebrex] 100 mg PO BID 09/01/19 09/01/19 History clonazepam [Klonopin] 1 mg PO HS 09/01/19 09/01/19 History divalproex [Depakote] 625 mg PO BID 09/01/19 09/01/19 History docusate sodium [Colace] 100 mg PO BID 09/01/19 09/01/19 History lamotrigine [Lamictal] 50 mg PO DAILY 09/01/19 09/01/19 History loratadine [Claritin] 10 mg PO DAILY 09/01/19 09/01/19 History omeprazole 40 mg PO DAILY 09/01/19 09/01/19 History oxycodone-acetaminophen [Percocet] 1 tab PO TID PRN 09/01/19 09/01/19 History pantoprazole [Protonix] 40 mg PO DAILY 09/01/19 09/01/19 History quetiapine [Seroquel] 50 mg PO HS 09/01/19 09/01/19 History mirtazapine [Remeron] 7.5 mg PO HS 09/02/19 09/02/19 History Patient History Social History Preferred Language: Russian Communication Ability: Effective Wall And Floor Tiler Required: No Current Living Situation: Other Current Living Situation Comment: [place] Other Information That Helps Us Care for You: No Feels Safe at Home: Yes Safety Concerns: Feels Safe At This Time Smoking Status: Former smoker Tobacco Type: cigarettes ; Do You Dip or Chew Tobacco: No ; Smoking End Date: January 2019 ; Second Hand Exposure: No ; Tobacco Cessation Education Requested by Patient: No Hx Alcohol Use: Yes Alcohol type: beer, wine and hard liquor Hx Substance Use: No Physical Exam Physical Exam: Physical Exam: Constitutional: appearance nourished, healthy and normal Ears, Nose, Mouth and Throat: mucous membranes moist, no injection and skin normal, eyes normal Cardiovascular: normal S-1 and S-2 and regular rate and rhythm Respiratory: clear to auscultation (CTA) and no rales, ronchi or wheeze Musculoskeletal: no peripheral edema and good distal pulses Skin: no stigmata of neurocutaneous disease noted and normal and intact Eyes: extraocular muscles intact (EOMI) and pupils equal, round and reactive to light (PERRL) NEUROLOGIC EXAMINATION: Mental status: Alert and interactive Oriented to full date and location Oriented to person Speech fluent with no evidence of aphasia Cranial Nerves smile eye brow raise symmetric Reflexes: Deep tendon reflexes were symmetrical and graded 2/5. Sensory: intact to light cool and vibration Coordination: finger to nose no bipass Gait/Stance: Posture normal. Gait normal: with steady with steps, base, and tandem gait. Motor: Negative for pronator drift of out stretched arms with eyes closed. Strength: biceps triceps hand community outreach director 5/5 bilaterally, hip flex patellar/plantar 5/5 bialt erally Results & Data Vital Signs (Past 12 Hours) Vital Signs Temp Pulse Pulse Resp BP BP Pulse Ox 09/02/19 10:46 36.5 C 94 H 18 99/65 L 94 09/02/19 07:55 36.9 C 78 14 86/69 L 98 09/02/19 07:35 78 09/02/19 07:04 36.7 C 88 18 100/50 L 93 09/02/19 05:48 36.5 C 78 20 117/69 98 Laboratory Results Abnormal lab results 09/01/19 09/01/19 09/01/19 Range/Units 18:26 18:50 19:39 RBC 4.14 L (4.2-5.4) M/uL Hgb (12.0-16.0) g/dL Hct 36.6 L (37-47) % RDW Std Deviation (36.4-46.3) fL Immature Gran # (Auto) 0.03 H (0.00-0.02) K/uL Lymph # (Auto) 4.20 H (1.2-3.4) K/uL Rawlins # (Auto) 0.99 H (0.11-0.59) K/uL BUN 20 H (7-18) mg/dl BUN/Creatinine Ratio 25.1 H (10-20) POC Glucose (70-99) Calcium (8.5-10.1) mg/dl Urine WBC (Auto) 5-10 H (0-5) /hpf U Epithel Cells (Auto) >30 H (0-5) /lpf Urine Bacteria (Auto) 1+ H (Negative) 09/01/19 09/02/19 09/02/19 Range/Units 21:32 05:30 05:30 RBC 3.73 L (4.2-5.4) M/uL Hgb 11.7 L (12.0-16.0) g/dL Hct 34.1 L (37-47) % RDW Std Deviation 46.4 H (36.4-46.3) fL Immature Gran # (Auto) (0.00-0.02) K/uL Lymph # (Auto) 3.59 H (1.2-3.4) K/uL Rawlins # (Auto) 1.01 H (0.11-0.59) K/uL BUN (7-18) mg/dl BUN/Creatinine Ratio 24.2 H (10-20) POC Glucose 118 H (70-99) Calcium 8.4 L (8.5-10.1) mg/dl Urine WBC (Auto) (0-5) /hpf U Epithel Cells (Auto) (0-5) /lpf Urine Bacteria (Auto) (Negative) Diagnostic Findings CT head- No acute intracranial abnormality EEG-This is a normal EEG without evidence for focal generalized encephalopathy and without evidence for epileptogenic activity
[2019-09-02] MEDS: QUETIAPINE FUMARATE 25 MG TABLET PO SCH (21:39)
[2019-09-02] MEDS: clonazePAM 1 MG TAB PO SCH (21:39)
[2019-09-03] MEDS: DIVALPROEX DELAY RELEASE 500 MG TAB PO SCH (09:00)
[2019-09-03] MEDS: DIVALPROEX DELAY RELEASE 125 MG TABEC PO SCH (09:00)
[2019-09-03] MEDS: lamoTRIgine 25 MG TAB PO SCH (09:01)
[2019-09-03] MEDS: DOCUSATE SODIUM 100 MG CAP PO SCH (09:01)
[2019-09-03] MEDS: PANTOprazole 40 MG TAB PO SCH (09:01)
[2019-09-03] MEDS: LORATADINE 10 MG TAB PO SCH (09:01)
[2019-09-03] MEDS: NICOTINE 7 MG/24 HR TDSY TD SCH (09:02)
--- NOTE | 2019-09-03 12:55 | Discharge Summary ---
Date of Service September 03, 2019 Admission HPI Per Admitting Provider Divina Inman is a 34-year-old female admitted medically on 09/01/19 after presenting to the ED with observed seizure activity. Patient is currently engaged in psychiatric treatment at the [facility] after a reported suicide attempt by overdose. Patient has a past medical history of GERD, mild intellectual disability, conversion disorder, history of pseudoseizures/seizure disorder, anxiety, depression, and PTSD. Psychiatric consultation is requested to evaluate the patient due to concerns for suicidal ideation. Patient states that she was admitted to the [facility] on "Sunday" (08/29/19) after she "took 2 oxycodone." When asked why patient had engaged in this behavior, she states "my mom, dad, and stepdad do not get along." Patient states that she took the medication in an attempt to "take the edge off." She denies to this provider suicidal intent at the time of taking the medication, stating she did not believe that it would seriously harm her. Patient states that her boyfriend had been downstairs at the time of her overdose, and after finding out about the patient's behavior had called the fur vault attendant. Patient was admitted voluntarily for inpatient psychiatric treatment, and after displaying seizure activity on 2 separate accounts, was transferred to the ED for further workup and treatment. This time, patient states that her mood is "good." She believes that her condition has been improving since her initial admission to the [facility]. Patient denies any significant concerns related to psychiatric history, and feels that her medications have been beneficial. Patient initially states that there were no changes made to her medications upon admission to the [facility]; however, she later states that she was instructed to take 500 mg of Depakote twice a day. Patient states that she is seen at [facility] on an outpatient basis, having regular visits with both a therapist and a psychiatric prescriber. Patient denies any significant stressors at this time that are not currently being addressed in her treatment at the [facility]. Pt denies SI, HI, SIB, A/V hallucinations, paranoia, azael/hypomania, other symptoms more suggestive of a bipolar presentation, OCD, eating disorder, and other specific psychiatric symptoms. Admission Exam Per Admitting Provider PHYSICAL EXAMINATION: GENERAL: The patient is of moderate build, not in acute distress. VITAL SIGNS: Temperature 36.4, pulse 93, respiratory rate 27, blood pressure 107/81, oxygen 98% room air. HEENT: No pallor, no icterus. Pupils equal, round, reactive to light. NECK: No JVD, no neck masses, no carotid bruits. CARDIOVASCULAR: S1, S2 heard, regular rate and rhythm. No murmurs. RESPIRATORY SYSTEM: Normal AP diameter. No accessory muscle use. No wheezing, no crackles. ABDOMEN: Soft, bowel sounds present, nontender. No distention. CENTRAL NERVOUS SYSTEM: Cranial nerves II-XII grossly intact. Nonfocal. EXTREMITIES: No edema, no erythema. Principal Diagnosis pseudoseizures suicidal ideations developmental delay Discharge Data Allergies Allergy/AdvReac Type Severity Reaction Status Date / Time ketorolac [From Toradol] Allergy Unknown Verified 09/01/19 21:46 tramadol Allergy Unknown Verified 09/01/19 21:46 Consultations 09/01/19 19:35 ED Decision to Admit Stat 09/01/19 21:32 Consult Case Management - Discharge Planning Routine Consult Neurology Routine 09/01/19 22:01 Consult Behavioral Health Liaison Routine 09/02/19 08:00 Consult Psychiatry Routine Ordered Studies 09/01/19 17:34 CT head/brain wo con Stat Hospital Course (1) Pseudoseizure: She was admitted to the hospitalist service and placed on safety and seizure precautions. Neurology was consulted and noted that she has been extensively worked up in the past at [facility] and diagnosed with pse udoseizures. She is currently on Depakote on Lamictal for mood and was previously on Keppra but this was stopped. In the ER she was given a 1 g load of IV Keppra which was discussed with neurology. After evaluation and chart review the neurologist felt the episode that occurred prior to arrival at the [facility] was yet another nonepileptic seizure and she was never postictal and had no bodily harm. She had no evidence of leukocytosis and an EEG performed did not reflect a postictal state. It was decided to discontinue Keppra at this point and neurology had no further suggestions. Psychiatry was consulted and history of suicidal ideations. It was recommended she stay on safety precautions with suicide watch and return to the [facility] facility to complete her inpatient therapy. At time of discharge she was hemodynamically stable and afebrile and mentating and ambulating at baseline. She was not actively suicidal per her report. She verbalized that she had additional coping mechani sms to deal with stress that was certain upon her return home. She did note a discrepancy in her medications, which was verified with her current pharmacy, including Depakote dose being 1000 mg p.o. twice daily. This was reflected on her home medication list at time of discharge. At time of discharge physical exam was unremarkable with clear lungs auscultation and normal heart exam, skin warm and dry and no gross focal neurologic deficits. She was strongly encouraged to quit smoking. Close primary care follow-up was recommended after discharge from current psychiatric facility. Patient verbalized understanding with intent to comply. (2) Suicidal ideations: Total Time Total Time Spent Total Time Spent (In Minutes): 60 Total Time Includes: Examination of the Patient, Discharge Planning, Medication Reconciliation and Communication With Other Providers Discharge Plan Discharge Items Patient Disposition: Transfer Behavioral Health Fac Reason For Visit: SEIZURES Discharge Diagnosis: pseudoseizures suicidal ideations developmental delay Condition on Discharge: Good Activity: As commented below Activity Comment: no driving Non-emergency contact: Primary Care Provider and Psychiatrist Call non-emergency contact if: you have any medication questions, your symptoms worsen, your pain is not controlled, your pain is worsening, your pain is unusual for you, your pain is concerning for you and you have a fever Follow-up/Referrals: Manav Bravo [Primary Care Provider] - Diet: Regular Addtl Attending Provider Instructions: Please take all medications as prescribed on discharge list below. You are being sent back to the [facility] to complete your initial treatment program. It is strongly recommended that you follow-up with your psychiatrist and outpatient primary care provider within one week of discharge from this facility to ensure you are doing well. It was a pleasure taking care of you! Please call if you have any questions or problems. You can reach a [facility] hospitalist on duty at [facility] 24 hours a day by calling [phone]. Take care of yourself. Nereida Dykes DO [facility] Hospitalist Pending Studies at Discharge: Yes Studies:: finalized blood culture pending at time of discharge which was preliminarily negative. Stand-Alone Forms: My [facility] Skilled Items DNR: No Lines: None Urinary Catheter: No Medications and DC Order Prescriptions: Continued pantoprazole [Protonix] 40 mg Tablet,Delayed Release (Dr/Ec) 40 mg PO QAM RF: 0 loratadine [Claritin] 10 mg Tablet 10 mg PO DAILY RF: 0 clonazepam [Klonopin] 1 mg Tablet 1 mg PO HS RF: 0 divalproex [Depakote] 500 mg Tablet,Delayed Release (Dr/Ec) 1,000 mg PO BID RF: 0 lamotrigine [Lamictal] 25 mg Tablet 50 mg PO QAM RF: 0 docusate sodium [Colace] 100 mg Capsule 100 mg PO BID RF: 0 quetiapine [Seroquel] 50 mg Tablet 50 mg PO HS RF: 0 mirtazapine [Remeron] 15 mg Tablet 15 mg PO HS RF: 0 No Action divalproex 125 mg Tablet,Delayed Release (Dr/Ec) 125 mg PO BID RF: 0 nicotine 7 mg/24 hr Patch 24 Hour 1 patch TRANSDERMAL DAILY RF: 0 Discharge Orders: Discharge Order (Routine); Ordered 09/03/19 Ordered By: Nereida Dykes Admission Data Admit Date/Time: 09/01/19 20:24 Attending Provider: Nereida Dykes Admit Provider: Molina Samson Primary Care Provider: Manav Bravo Other Providers: Molina Samson ; Bautista Davila ; Sylwia Hardy Other Interventions: Discharge Summary Assessment (RN) Last Done: 09/03/19 13:44 DC Date/Time DO NOT enter until pt leaves facility: 09/03/19 17:04
[2019-09-03] MEDS ORDERED: MIRTAZAPINE TAB 15 MG TAB PO SCH (21:00)
== END 2019-09-03 17:04 | DRG 101 ==
LOC: ED 17:08 → 2E 20:24 → SUATTDRO 20:24 → 2E 21:06